=== PATIENT | female | born 1975 | race Caucasian/White ===

== ENCOUNTER 2017-04-25 06:10 | Emergency (ER) | payer BC, OTHER ==
[~2017-04-25] VITALS: Ht 152.4 cm; Wt 97.5 kg
[2017-04-25 06:20] VITALS: BP_SYST 133
[2017-04-25] MEDS ORDERED: NACL 0.9% 1,000 ML IV ONE (06:33)
[2017-04-25] MEDS ORDERED: fentaNYL CITRATE/PF 100 MCG/2 ML AMP IVP ONE (06:45)
[2017-04-25 06:51] LABS: BILIRUBIN,URINE NEGATIVE (NEGATIVE); BLOOD, URINE 1+ (NEGATIVE); CLARITY/URINE CLEAR (CLEAR); COLOR,URINE YELLOW (YELLOW); GLUCOSE,URINE NEGATIVE (NEGATIVE); KETONES,URINE NEGATIVE (NEGATIVE); LEUKOCYTE ESTERASE ,URINE 2+ (NEGATIVE); NITRITE, URINE NEGATIVE (NEGATIVE); PROTEIN URINE NEGATIVE (NEGATIVE); UROBILINOGEN,URINE 0.2 (0.2-1.0)
[2017-04-25 07:37] LABS: BASOPHILS % (AUTO) 0.2 % (0.0-2.0); EOSINOPHILS # (AUTO) 0.1 K/uL (0.0-0.4); EOSINOPHILS % (AUTO) 0.9 % (0.0-4.0); HEMATOCRIT 39.2 % (36-48); HEMOGLOBIN 13.5 g/dL (12.0-16.0); LYMPHOCYTES # (AUTO) 1.5 K/uL (1.0-5.5); LYMPHOCYTES % (AUTO) 10.9 % (20.5-51.5); MEAN CORPUSCULAR HEMOGLOBIN 29 pg (27-31); MEAN CORPUSCULAR HGB CONC 34 % (32-36); MEAN CORPUSCULAR VOLUME 84 fL (79.0-98.0); MONOCYTES # (AUTO) 0.4 K/uL (0.0-1.0); MONOCYTES % (AUTO) 3.3 % (1.7-9.3); NEUTROPHILS # (AUTO) 11.5 K/uL (1.8-7.7); NEUTROPHILS % (AUTO) 84.7 % (40.0-70.0); PLATELET COUNT (AUTO) 309 K/uL (130-430); RED BLOOD CELL COUNT(AUTO) 4.65 MIL/uL (4.2-6.2); RED CELL DISTRIBUTION WIDTH 12.4 % (9.0-15.0); WHITE BLOOD COUNT (AUTO) 13.5 K/uL (4.8-10.8)
[2017-04-25 08:00] LABS: CREATININE 0.58 mg/dL (0.55-1.30); POTASSIUM 3.6 mmol/L (3.5-5.1)
[2017-04-25 08:01] LABS: PROTHROMBIN TIME 9.8 SECS (9.5-12.5)
[2017-04-25 08:14] LABS: ALBUMIN 3.7 g/dL (3.4-4.8); TOTAL BILIRUBIN 1.2 mg/dL (0.0-1.0)
[2017-04-25] MEDS ORDERED: MORPHINE 4 MG/ML INJ. SYRINGE IVP ONE ×2 (08:30→11:00)
[2017-04-25] MEDS ORDERED: cefTRIAXone 1 GM in D5W 50 ML IV ONE (08:30)
[2017-04-25] MEDS ORDERED: cefTRIAXone 1 GM VIAL ONE (08:44)
[2017-04-25 08:50] LABS: BACTERIA,URINE MODERATE /HPF (None Seen); RBC,URINE 0-3 /HPF (0-3)
[2017-04-25 08:51] LABS: MUCUS,URINE None Seen /LPF (None Seen)
[2017-04-25 11:45] VITALS: BP_SYST 125
== END 2017-04-25 11:45 | disposition home or self-care (01) ==
LOC: SED 06:10
DX: N83.209 Unspecified ovarian cyst, unspecified side (principal); N39.0 Urinary tract infection, site not specified; Z90.49 Acquired absence of other specified parts of digestive tract; Z90.89 Acquired absence of other organs; Z90.710 Acquired absence of both cervix and uterus
CPT/HCPCS: 36415; 74176; 76830; 76857; 80053; 81000; 81025; 83605; 85025; 85610; 85730; 87040; 87086; 87186; 96361; 96365; 96375; 96376; 99285; J0696; J2270; J3010; J7030

== ENCOUNTER 2023-12-03 20:17 | Inpatient (IN) | payer BC, OTHER ==
[~2023-12-03] VITALS: Ht 152.4 cm; Wt 68.0 kg
[2023-12-03 20:26] VITALS: BP_SYST 120; PULSE 74; RESP 20; TEMP 98; O2SAT 98
[2023-12-03] MEDS: NACL 0.9% 1,000 ML IV ONE (21:20)
[2023-12-03] MEDS: KETOROLAC TROMETHAMINE 30 MG VIAL IVP ONE (21:21)
[2023-12-03] MEDS: ONDANSETRON HCL 4 MG/2 ML VIAL IVP ONE (21:21)
[2023-12-03 21:22] LABS: BASOPHILS # (AUTO) 0.1 K/uL (0.0-0.2); BASOPHILS % (AUTO) 0.7 % (0.0-2.0); EOSINOPHILS # (AUTO) 0.4 K/uL (0.0-0.4); EOSINOPHILS % (AUTO) 4.1 % (0.0-4.0); HEMOGLOBIN 13.5 g/dL (12.0-16.0); LYMPHOCYTES # (AUTO) 2.2 K/uL (1.0-5.5); MEAN CORPUSCULAR HEMOGLOBIN 29 pg (27-31); MEAN CORPUSCULAR HGB CONC 35 % (32-36); MEAN CORPUSCULAR VOLUME 82 fL (79.0-98.0); MONOCYTES # (AUTO) 0.5 K/uL (0.0-1.0); MONOCYTES % (AUTO) 5.3 % (1.7-9.3); NEUTROPHILS # (AUTO) 5.9 K/uL (1.8-7.7); NEUTROPHILS % (AUTO) 65.9 % (40.0-70.0); PLATELET COUNT (AUTO) 354 K/uL (130-430); RED BLOOD CELL COUNT(AUTO) 4.73 MIL/uL (4.2-6.2)
[2023-12-03] MEDS: MORPHINE 4 MG INJ. 4 MG/ML VIAL IVP ONE (21:22)
[2023-12-03 21:51] LABS: ALBUMIN 3.7 g/dL (3.4-4.8); BILIRUBIN,DIRECT 0.2 mg/dL (0.0-0.3); CALCIUM 8.6 mg/dL (8.4-11.0); CREATININE 0.73 mg/dL (0.55-1.30); POTASSIUM 3.2 mmol/L (3.5-5.1); TOTAL BILIRUBIN 1.1 mg/dL (0.0-1.0); TOTAL PROTEIN, SERUM 7.4 g/dL (6.4-8.3)
[2023-12-03 21:59] LABS: SERUM HCG (QUALITATIVE) NEGATIVE (NEGATIVE)
[2023-12-04 00:35] LABS: BILIRUBIN,URINE NEGATIVE (NEGATIVE); BLOOD, URINE NEGATIVE (NEGATIVE); CLARITY/URINE CLEAR (CLEAR); COLOR,URINE YELLOW (YELLOW); GLUCOSE,URINE NEGATIVE (NEGATIVE); KETONES,URINE 1+ (NEGATIVE); LEUKOCYTE ESTERASE ,URINE TRACE (NEGATIVE); NITRITE, URINE NEGATIVE (NEGATIVE); PROTEIN URINE NEGATIVE (NEGATIVE); UROBILINOGEN,URINE 0.2 (0.2-1.0)
[2023-12-04 01:06] LABS: BACTERIA,URINE MODERATE /HPF (None Seen)
[2023-12-04] MEDS: NACL 0.9% 1,000 ML IV SCH (03:30)
[2023-12-04] MEDS: ONDANSETRON HCL 4 MG/2 ML VIAL IVP PRN (05:02)
[2023-12-04] MEDS: MORPHINE 2 MG/ML INJ. SYRINGE IVP PRN ×2 (05:03→05:04)
[2023-12-04 05:45] VITALS: BP_SYST 125; PULSE 68; RESP 17; TEMP 97.6; O2SAT 98
[2023-12-04 08:50] VITALS: BP_SYST 120; PULSE 80; RESP 18; TEMP 98.4; O2SAT 100
[2023-12-04] MEDS: ENOXAPARIN SODIUM 40 MG/0.4 ML SYRINGE SUBCUT SCH (08:55)
[2023-12-04 11:40] VITALS: BP_SYST 124; PULSE 79; RESP 18; TEMP 98.2; O2SAT 98
[2023-12-04 16:05] VITALS: BP_SYST 121; PULSE 74; RESP 16; TEMP 97.9; O2SAT 98
[2023-12-04 19:58] VITALS: BP_SYST 116; PULSE 73; RESP 18; TEMP 97.9; O2SAT 97
[2023-12-04 23:33] VITALS: BP_SYST 116; PULSE 69; RESP 16; TEMP 96.8; O2SAT 100
[2023-12-05 07:46] VITALS: BP_SYST 130; PULSE 65; RESP 16; TEMP 97.4; O2SAT 99
[2023-12-05 12:06] VITALS: BP_SYST 122; PULSE 70; RESP 16; TEMP 97.7; O2SAT 100
[2023-12-05 16:00] VITALS: BP_SYST 119; PULSE 75; RESP 18; TEMP 98.8; O2SAT 97
[2023-12-05] MEDS: BISACODYL 10 MG/SUPPOSITORY RC ONE (16:43)
[2023-12-05] MEDS ORDERED: DOCUSATE SODIUM 100 MG CAPSULE PO PRN (16:45)
[2023-12-05 20:00] VITALS: BP_SYST 117; PULSE 66; RESP 18; TEMP 98.1; O2SAT 98
[2023-12-05 22:47] LABS: PROTHROMBIN TIME 10.7 SECS (9.5-12.5)
[2023-12-06 06:13] LABS: BASOPHILS % (AUTO) 0.6 % (0.0-2.0); EOSINOPHILS # (AUTO) 0.3 K/uL (0.0-0.4); EOSINOPHILS % (AUTO) 4.4 % (0.0-4.0); HEMATOCRIT 33.8 % (36-48); HEMOGLOBIN 11.8 g/dL (12.0-16.0); LYMPHOCYTES # (AUTO) 2.1 K/uL (1.0-5.5); LYMPHOCYTES % (AUTO) 32.2 % (20.5-51.5); MEAN CORPUSCULAR HEMOGLOBIN 29 pg (27-31); MEAN CORPUSCULAR HGB CONC 35 % (32-36); MEAN CORPUSCULAR VOLUME 82 fL (79.0-98.0); MONOCYTES # (AUTO) 0.5 K/uL (0.0-1.0); MONOCYTES % (AUTO) 7.1 % (1.7-9.3); NEUTROPHILS # (AUTO) 3.7 K/uL (1.8-7.7); NEUTROPHILS % (AUTO) 55.7 % (40.0-70.0); PLATELET COUNT (AUTO) 297 K/uL (130-430); RED BLOOD CELL COUNT(AUTO) 4.12 MIL/uL (4.2-6.2); WHITE BLOOD COUNT (AUTO) 6.7 K/uL (4.8-10.8)
[2023-12-06 06:48] LABS: ALBUMIN 2.9 g/dL (3.4-4.8); CREATININE 0.5 mg/dL (0.55-1.30); POTASSIUM 3.4 mmol/L (3.5-5.1); TOTAL BILIRUBIN 1.5 mg/dL (0.0-1.0)
[2023-12-06 08:21] VITALS: BP_SYST 133; PULSE 68; RESP 16; TEMP 97.1; O2SAT 100
[2023-12-06] MEDS: POTASSIUM CHLORIDE 40 MEQ in NS 250 ML IV ONE (10:52)
[2023-12-06] MEDS ORDERED: NALOXONE HCL 0.4 MG/ML AMP (NARCAN) IVP PRN (12:00)
[2023-12-06] MEDS ORDERED: MEPERIDINE HCL/PF 25 MG/ML DISP.SYRIN IVP PRN (12:00)
[2023-12-06] MEDS ORDERED: ONDANSETRON HCL 4 MG/2 ML VIAL IVP PRN (12:00)
[2023-12-06] MEDS ORDERED: KETOROLAC TROMETHAMINE 30 MG VIAL IVP PRN (12:00)
[2023-12-06] MEDS ORDERED: METOCLOPRAMIDE HCL 10 MG/2 ML VIAL IVP PRN (12:00)
[2023-12-06 12:10] VITALS: BP_SYST 133; PULSE 68; O2SAT 100
[2023-12-06] MEDS ORDERED: KETOROLAC TROMETHAMINE 30 MG VIAL ONE (12:12)
[2023-12-06] MEDS ORDERED: ceFAZolin SODIUM 1 GM VIAL ONE (12:12)
[2023-12-06] MEDS: HYDROmorphone 2 MG/ML VIAL ONE (13:50)
[2023-12-06] MEDS: HYDROmorphone 1 MG/ML INJ. CARTRIDGE IVP PRN (14:15)
[2023-12-06 14:43] VITALS: BP_SYST 121; PULSE 62; RESP 15; TEMP 98.1; O2SAT 100
[2023-12-06 16:50] VITALS: BP_SYST 100; PULSE 64; RESP 15; TEMP 97.9; O2SAT 100
[2023-12-06 20:00] VITALS: O2SAT 97
[2023-12-06 20:28] VITALS: BP_SYST 109; PULSE 81; RESP 18; TEMP 97.6; O2SAT 97
[2023-12-06] MEDS: ACETAMINOPHEN 325 MG TABLET PO PRN (21:57)
[2023-12-07] VITALS: BP_SYST 111; PULSE 81; RESP 16; TEMP 97.6; O2SAT 98
[2023-12-07 05:02] LABS: BASOPHILS % (AUTO) 0.4 % (0.0-2.0); EOSINOPHILS # (AUTO) 0.1 K/uL (0.0-0.4); HEMATOCRIT 33.1 % (36-48); HEMOGLOBIN 11.4 g/dL (12.0-16.0); LYMPHOCYTES # (AUTO) 1.9 K/uL (1.0-5.5); LYMPHOCYTES % (AUTO) 17.1 % (20.5-51.5); MEAN CORPUSCULAR HEMOGLOBIN 28 pg (27-31); MEAN CORPUSCULAR HGB CONC 34 % (32-36); MEAN CORPUSCULAR VOLUME 83 fL (79.0-98.0); MONOCYTES # (AUTO) 0.8 K/uL (0.0-1.0); MONOCYTES % (AUTO) 7.3 % (1.7-9.3); NEUTROPHILS # (AUTO) 8.3 K/uL (1.8-7.7); NEUTROPHILS % (AUTO) 74.2 % (40.0-70.0); PLATELET COUNT (AUTO) 307 K/uL (130-430); RED BLOOD CELL COUNT(AUTO) 4.01 MIL/uL (4.2-6.2); RED CELL DISTRIBUTION WIDTH 13.1 % (9.0-15.0); WHITE BLOOD COUNT (AUTO) 11.1 K/uL (4.8-10.8)
[2023-12-07 05:18] LABS: ALBUMIN 2.7 g/dL (3.4-4.8); CALCIUM 7.9 mg/dL (8.4-11.0); CREATININE 0.54 mg/dL (0.55-1.30); TOTAL BILIRUBIN 1.4 mg/dL (0.0-1.0); TOTAL PROTEIN, SERUM 5.9 g/dL (6.4-8.3)
[2023-12-07 08:00] VITALS: BP_SYST 125; PULSE 85; RESP 16; TEMP 97.8; O2SAT 99
[2023-12-07 08:15] VITALS: O2SAT 98
[2023-12-07] MEDS ORDERED: HYDR-3917 PO (08:50)
[2023-12-07 12:00] VITALS: BP_SYST 110; PULSE 88; RESP 20; TEMP 97.8; O2SAT 97
[2023-12-07 12:43] VITALS: BP_SYST 110; PULSE 88; RESP 16; TEMP 97.8; O2SAT 98
== END 2023-12-07 13:30 | disposition home or self-care (01) | DRG 354 ==
LOC: SED 20:17 → SMU 12-04 03:02
PROVIDERS: ADMIT Internal Medicine; ATTEND Internal Medicine
PROC: 0WQF0ZZ Repair Abdominal Wall, Open Approach (ICD-10-PCS; principal; 2023-12-04)
PROC: 0DH67UZ Insertion of Feeding Device into Stomach, Via Natural or Artificial Opening (ICD-10-PCS; 2023-12-04)
DX: K43.0 Incisional hernia with obstruction, without gangrene (principal); J98.11 Atelectasis; Z79.899 Other long term (current) drug therapy
CPT/HCPCS: 36415; 71045; 80048; 80053; 80076; 81000; 81001; 81015; 83690; 84703; 85025; 85610; 85730; 86886; 86900; 86901; 87081; 87086; 88302; 93005; 96361; 96374; 96375; 99285; J0690; J1100; J1170; J1650; J1885; J2270; J2405; J2704; J3010; J3465; J3480; J3490; J7050